=== PATIENT | female | born 1970 | race Caucasian/White ===

== ENCOUNTER 2020-10-23 07:32 | Outpatient (CLI) | payer BC | END 2020-10-23 07:33 | disposition home or self-care (01) | LOC: SCSMRI 07:32 | PROVIDERS: ATTEND Podiatrist | DX: M25.571 Pain in right ankle and joints of right foot (principal); G89.29 Other chronic pain; S96.911A Strain of unspecified muscle and tendon at ankle and foot level, right foot, initial encounter ==